=== PATIENT | female | born 1995 | race Caucasian/White ===

== ENCOUNTER → 2017-06-07 | Outpatient (REF) | payer BC ==
[~2017-06-07] MED LIST: MOTR200T44 PO
== END ==
LOC: M SFHCLERA 14:34
PROVIDERS: ATTEND Physician Assistant
DX: J01.00 Acute maxillary sinusitis, unspecified (principal)

== ENCOUNTER 2017-10-29 13:10 | Emergency (ER) | payer BC | END 2017-10-29 14:32 | disposition home or self-care (01) | LOC: M ED 13:10 | DX: M54.16 Radiculopathy, lumbar region (principal); M62.830 Muscle spasm of back | CPT/HCPCS: 99282 ==

== ENCOUNTER → 2018-01-11 | Outpatient (REF) | payer BC | LOC: M LAB REF 01-12 13:17 | DX: J02.9 Acute pharyngitis, unspecified (principal) | CPT/HCPCS: 87081 ==

== ENCOUNTER 2018-06-26 21:49 | Emergency (ER) | payer BC ==
[2018-06-26] MEDS: dexameTHASONE 4 MG/ML 1ML VIAL (J1100) PO (23:04)
[2018-06-26] MEDS: IBUPROFEN 600 MG TAB PO (23:05)
[2018-06-26 23:38] LABS: BASO # 0.1 10^3/uL (0.0-0.2); BASO % 0.4 % (0.0-1.0); EOS # 0.1 10^3/uL (0.0-0.50); EOS % 0.9 % (0.0-3.0); HEMATOCRIT 38.5 % (36.0-47.0); HEMOGLOBIN 12.6 g/dl (12.0-15.5); IMMATURE GRANULOCYTE % 0.4 % (0-3.0); LYMPH # 1.7 10^3/uL (1.5-6.5); LYMPH % 11.1 % (24.0-44.0); MEAN CORPUSCULAR HEMOGLOBIN 29.6 pg (27.0-33.0); MEAN CORPUSCULAR HGB CONC 32.7 g/dl (32.0-36.5); MEAN CORPUSCULAR VOLUME 90.6 fl (80.0-96.0); MONO # 0.9 10^3/uL (0.0-0.8); MONO % 6.1 % (0.0-5.0); NEUTROPHILS # 12.5 10^3/uL (1.8-7.7); NEUTROPHILS % 81.1 % (36.0-66.0); PLATELET COUNT, AUTOMATED 305 10^3/uL (150-450); RED BLOOD COUNT 4.25 10^6/uL (4.00-5.40); WHITE BLOOD COUNT 15.4 10^3/uL (4.0-10.0)
[2018-06-26 23:58] LABS: CONTROL LINE MONO INT CTR LINE PRESENT; MONO SCRN NEGATIVE (NEGATIVE)
[2018-06-27 00:03] LABS: ANION GAP 6 MEQ/L (8-16); BLOOD UREA NITROGEN 12 MG/DL (7-18); CALCIUM LEVEL 9.2 MG/DL (8.5-10.1); CARBON DIOXIDE LEVEL 27 MEQ/L (21-32); CHLORIDE LEVEL 106 MEQ/L (98-107); CREATININE FOR GFR 0.83 MG/DL (0.55-1.30); GLOMERULAR FILTRATION RATE > 60.0 (>60); GLUCOSE, FASTING 99 MG/DL (70-100); SODIUM LEVEL 139 MEQ/L (136-145)
[2018-06-27 00:06] LABS: INFLUENZA A AMPLIFICATION NEGATIVE (NEGATIVE); INFLUENZA B AMPLIFICATION NEGATIVE (NEGATIVE)
[2018-06-27] MEDS: AMOXICILLIN 500 MG CAP PO (00:30)
== END 2018-06-27 00:35 | disposition home or self-care (01) ==
LOC: M ED 06-27 00:35
DX: J02.9 Acute pharyngitis, unspecified (principal); I95.1 Orthostatic hypotension; Z79.899 Other long term (current) drug therapy; Z88.1 Allergy status to other antibiotic agents
CPT/HCPCS: J1100

== ENCOUNTER → 2018-08-30 | Outpatient (CLI) | payer BC ==
[~2018-08-30] MED LIST changes: +AMOX500C PO; +IBUP-1022 PO; +IBUP1TAB6 PO; +LIDO1SOL7 PO; +ROBA500T PO; +TRAZ-160 PO
--- NOTE | 2018-08-31 08:03 | REP ---
Chest two views HISTORY: Cough Comparison: None The lungs are clear. The heart is normal in size. The pulmonary vasculature is normal in appearance. The bony structure is intact. IMPRESSION: No acute disease. Electronically Signed by Louie Payton MD 08/30/2018 03:28 P
== END ==
LOC: M LRY 14:58
PROVIDERS: ATTEND Physician Assistant
DX: R05 Cough (principal); R06.02 Shortness of breath

== ENCOUNTER 2019-04-17 15:34 | Emergency (ER) | payer BC ==
[~2019-04-17] VITALS: Ht 154.9 cm; Wt 63.6 kg
[~2019-04-17 15:34] MED LIST changes: -LIDO1SOL7 PO; +LIDO1SOL8 PO; -TRAZ-160 PO; +TRAZ-252 PO
[2019-04-17] MEDS ORDERED: ACETAMINOPHEN 500 MG TAB PO ONE (16:15)
[2019-04-17] MEDS ORDERED: KETOROLAC 30 MG/ML VIAL (J1885) IV ONE (16:15)
[2019-04-17] MEDS ORDERED: diphenhydrAMINE INJ 50MG/ML VIAL (J1200) IV ONE (16:15)
[2019-04-17] MEDS ORDERED: METOCLOPRAMIDE INJ 10MG/2ML VIAL (J2765) IV ONE (16:15)
[2019-04-17] MEDS ORDERED: NS 1,000 ML IV ONE (16:15)
[2019-04-17 18:00] VITALS: BP 106/63
[2019-04-17] MEDS ORDERED: Holter Monitor (18:42)
--- NOTE | 2019-04-18 16:58 | ECGEPIP ---
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
== END 2019-04-17 18:55 | disposition home or self-care (01) ==
LOC: M ED 15:34 → EDBD 15:34 → M ED 18:55
DX: G43.909 Migraine, unspecified, not intractable, without status migrainosus (principal); R00.2 Palpitations; J45.909 Unspecified asthma, uncomplicated; F41.9 Anxiety disorder, unspecified; Z88.1 Allergy status to other antibiotic agents
CPT/HCPCS: 36415; 80047; 84702; 93005; 96361; 96374; 96375; 99284; J1200; J1885; J2765

== ENCOUNTER 2019-06-02 01:41 | Emergency (ER) | payer BC ==
[~2019-06-02] VITALS: Ht 154.9 cm; Wt 63.6 kg
[~2019-06-02 01:41] MED LIST changes: +Holter Monitor
[2019-06-02] MEDS ORDERED: ACET1TAB55 PO (02:08)
[2019-06-02 05:44] VITALS: BP 144/75
[2019-06-02] MEDS ORDERED: AMOX500C PO (06:21)
[2019-06-02] MEDS ORDERED: AMOXICILLIN 500 MG CAP PO ONE (06:30)
== END 2019-06-02 06:36 | disposition home or self-care (01) ==
LOC: M ED 01:41
DX: J02.9 Acute pharyngitis, unspecified (principal); J01.00 Acute maxillary sinusitis, unspecified; Z88.1 Allergy status to other antibiotic agents

== ENCOUNTER 2020-04-30 08:22 | Emergency (ER) | payer BC ==
[~2020-04-30] VITALS: Ht 154.9 cm; Wt 73.5 kg
[~2020-04-30 08:22] MED LIST changes: +ACET1TAB55 PO; -LIDO1SOL8 PO; +LIDO2SOL17 PO
[2020-04-30] MEDS ORDERED: PRENTAB53 PO (08:30)
[2020-04-30 08:57] LABS: BASO % 0.5 % (0.0-1.0); EOS # 0.1 10^3/uL (0.0-0.5); EOS % 1.9 % (0.0-3.0); HEMATOCRIT 39.7 % (36.0-47.0); HEMOGLOBIN 13.5 g/dl (12.0-15.5); LYMPH # 2.2 10^3/uL (1.5-5.0); LYMPH % 29.9 % (24.0-44.0); MEAN CORPUSCULAR HEMOGLOBIN 30.8 pg (27.0-33.0); MEAN CORPUSCULAR VOLUME 90.6 fl (80.0-96.0); MONO # 0.5 10^3/uL (0.0-0.8); MONO % 7.3 % (0.0-5.0); NEUTROPHILS # 4.4 10^3/uL (1.5-8.5); PLATELET COUNT, AUTOMATED 288 10^3/uL (150-450); RED BLOOD COUNT 4.38 10^6/uL (4.00-5.40); WHITE BLOOD COUNT 7.3 10^3/uL (4.0-10.0)
--- NOTE | 2020-04-30 09:41 | REPVR ---
PROCEDURE INFORMATION: Exam: US Duplex Artery and Vein of the Abdominal and/or Reproductive Organs. Complete Ovaries Exam date and time: 04/30/2020 9:22 AM Age: 25 years old Clinical indication: Lmp or gestational age (in weeks): 03/31/2020; Antepartum complications; Bleeding; ; Additional info: Bleeding/cramping. Hcg = 194 TECHNIQUE: Imaging protocol: Real-time duplex ultrasound scan of the arterial and venous flow with color Doppler flow and spectral waveform analysis with image documentation. Complete duplex exam focused on the ovaries. Duplex exam was added to evaluate for torsion and other vascular conditions. COMPARISON: No relevant prior studies available. FINDINGS: Right adnexa: Normal duplex of the ovary. Normal Doppler waveforms and color flow. Arterial and venous flow are normal. No evidence of ovarian torsion. Left adnexa: Normal duplex of the ovary. Normal Doppler waveforms and color flow. Arterial and venous flow are normal. No evidence of ovarian torsion. IMPRESSION: Normal ovarian arterial and venous vascular flow. No evidence ovarian torsion. PROCEDURE INFORMATION: Exam: US First Trimester, Transabdominal and US , Transvaginal Exam date and time: 04/30/2020 9:22 AM Age: 25 years old Clinical indication: Lmp or gestational age (in weeks): 03/31/2020; Antepartum complications; Bleeding; ; Additional info: Bleeding/cramping. Hcg = 194 TECHNIQUE: Imaging protocol: Real-time transabdominal obstetrical ultrasound of the maternal pelvis and a first trimester , less than 14 weeks 0 days, with image documentation. Transvaginal imaging was used for better evaluation of the fetus and adnexa. COMPARISON: No relevant prior studies available. FINDINGS: Gestation: No intra or extra uterine gestation. MATERNAL: Uterus: Uterus measures 7.2 x 3.6 x 4 cm. Endometrial stripe is 1.8 cm. Cervix: Unremarkable. Right adnexa: Right ovary measures 1.7 x 3.4 x 2 cm. Left adnexa: Left ovary measures 3 x 1.6 x 2 cm. There is a 1.6 x 1 x 1.6 cm left ovarian cyst containing internal low-level echoes. Intraperitoneal space: No intraperitoneal free fluid. IMPRESSION: No intra or extra uterine gestation. Recommend continued beta HCG follow-up and repeat ultrasound in 1-2 weeks. 1.6 x 1 x 1.6 cm left ovarian cyst containing internal low-level echoes. Electronically signed by: René Padgett On 04/30/2020 09:41:09 AM
[2020-04-30 10:36] VITALS: BP 123/63
== END 2020-04-30 10:35 | disposition home or self-care (01) ==
LOC: M ED 08:22
DX: O20.8 Other hemorrhage in early pregnancy (principal)

== ENCOUNTER → 2020-05-02 | Outpatient (CLI) | payer BC ==
[~2020-05-02] MED LIST changes: +PRENTAB53 PO
== END ==
LOC: M LAB 08:13
PROVIDERS: ATTEND Physician Assistant
DX: O26.859 Spotting complicating pregnancy, unspecified trimester (principal); Z3A.00 Weeks of gestation of pregnancy not specified

== ENCOUNTER → 2020-06-02 | Outpatient (REF) | payer BC ==
[2020-06-02 18:34] LABS: HEMATOCRIT 40.1 % (36.0-47.0); HEMOGLOBIN 13.1 g/dl (12.0-15.5); MEAN CORPUSCULAR HEMOGLOBIN 29.6 pg (27.0-33.0); MEAN CORPUSCULAR HGB CONC 32.7 g/dl (32.0-36.5); MEAN CORPUSCULAR VOLUME 90.7 fl (80.0-96.0); PLATELET COUNT, AUTOMATED 314 10^3/uL (150-450); RED BLOOD COUNT 4.42 10^6/uL (4.00-5.40); WHITE BLOOD COUNT 8.1 10^3/uL (4.0-10.0)
[2020-06-02 19:20] LABS: HEPATITIS C VIRUS ABY INDEX 0.1 INDEX (<0.8); HIV 1&2 SCREEN CENTAUR NEGATIVE (NEGATIVE)
== END ==
LOC: M PLALAB 14:02
PROVIDERS: ATTEND Advanced Practice Midwife
DX: Z34.01 Encounter for supervision of normal first pregnancy, first trimester (principal)